=== PATIENT | male | born 1940 | race Caucasian/White ===

== ENCOUNTER 2016-12-26 08:26 | Emergency (ER) | payer MEDICARE, OTHER ==
[~2016-12-26] VITALS: Ht 172.7 cm; Wt 77.1 kg
[~2016-12-26 08:26] MED LIST: CARAFATE1 G1 PO; CARAFATE1 GM PO; CIPRO500 MG PO; COUMADIN5 M2 PO; FLAGYL500 MG PO; LISINOPRIL10 MG PO; LOPRESSOR50 MG PO; PROTONIX40 MG PO; TRAMADOL HCL50 MG PO; VITAMIN D-32000 UNI1 PO
[2016-12-26] MEDS ORDERED: ZESTRIL5 MG PO (08:48)
[2016-12-26] MEDS ORDERED: VITAMIN D400 I1 PO (08:50)
[2016-12-26 09:31] LABS: BILIRUBIN NEGATIVE (NEGATIVE); BLOOD 3+ (NEGATIVE); CLARITY SL CLOUDY (CLEAR); COLOR YELLOW (YELLOW); GLUCOSE NEGATIVE (NEGATIVE); KETONE NEGATIVE (NEGATIVE); LEUKO ESTERASE NEGATIVE (NEGATIVE); NITRITE NEGATIVE (NEGATIVE); PH 5.5 (5.0-9.0); PROTEIN TRACE (NEGATIVE); SPECIFIC GRAVITY 1.025 (1.005-1.030); UROBILINOGEN 0.2 E.U./dl (0.2-1.0)
[2016-12-26 09:38] LABS: BACTERIA TRACE; MUCOUS 2+; RBC 31-40 rbc/hpf (0-2); URINE REFLEX COMMENT YES (NO)
[2016-12-26] MEDS ORDERED: FLOMAX0.4 MG PO (10:42)
== END 2016-12-26 11:18 | disposition home or self-care (01) ==
LOC: ED 08:26
PROVIDERS: Student in an Organized Health Care Education/Training Program
DX: R33.9 Retention of urine, unspecified (principal); Z91.041 Radiographic dye allergy status; Z91.011 Allergy to milk products; Z79.899 Other long term (current) drug therapy; Z79.02 Long term (current) use of antithrombotics/antiplatelets

== ENCOUNTER 2017-06-15 14:10 | Emergency (ER) | payer OTHER, MEDICARE ==
[~2017-06-15] VITALS: Ht 172.7 cm; Wt 77.1 kg
[~2017-06-15 14:10] MED LIST changes: +FLOMAX0.4 MG PO; +VITAMIN D400 I1 PO; +ZESTRIL5 MG PO
[2017-06-15 15:34] LABS: BASO % 0.4 % (0.0-1.0); EOS # 0.2 10*3/uL (0.0-0.4); EOS % 2.3 % (1.0-4.0); HEMATOCRIT 42.6 % (42.0-52.0); HEMOGLOBIN 13.6 g/dl (14.0-18.0); LYMPH # 1.2 10*3/uL (1.3-4.4); LYMPH % 16.2 % (27.0-41.0); MEAN CORPUSCULAR HGB 29.1 pg (27.0-31.0); MEAN CORPUSCULAR HGB CONC 31.9 g/dl (33.0-37.0); MEAN PLATELET VOLUME 10.1 fl (9.6-12.3); MONO # 0.6 10*3/uL (0.1-1.0); NEUT # 5.3 10*3/uL (2.3-7.9); NEUT % 72.5 % (47.0-73.0); PLATELET COUNT AUTOMATED 273 10*3/uL (130-400); RED BLOOD COUNT 4.68 10*6/uL (4.50-5.90); RED CELL DISTRI WIDTH 14.3 % (0-14.5); WHITE BLOOD COUNT 7.2 10*3/uL (4.8-10.8)
[2017-06-15 15:43] LABS: ACT PARTIAL THROMBO TIME 38.1 SECONDS (20.8-31.5); INTERNATIONAL NORM RATIO 3.8 (2.0-3.5)
[2017-06-15 15:47] LABS: BILIRUBIN NEGATIVE (NEGATIVE); BLOOD TRACE-INTACT (NEGATIVE); CLARITY SL CLOUDY (CLEAR); COLOR YELLOW (YELLOW); GLUCOSE NEGATIVE (NEGATIVE); KETONE NEGATIVE (NEGATIVE); LEUKO ESTERASE NEGATIVE (NEGATIVE); NITRITE NEGATIVE (NEGATIVE); PH 5.5 (5.0-9.0); UROBILINOGEN 0.2 E.U./dl (0.2-1.0)
[2017-06-15 15:49] LABS: ALBUMIN 2.9 gm/dl (3.1-4.5); ALKALINE PHOSPHATASE 79 U/L (45-117); BUN 62 mg/dl (7-24); CHLORIDE 109 mmol/L (98-107); LIPASE 255 U/L (73-393); MAGNESIUM 2.5 mg/dL (1.5-2.1); POTASSIUM 4.8 mmol/L (3.5-5.1); SGOT/AST 21 IU/L (3-35); SGPT/ALT 24 U/L (12-78); SODIUM 141 mmol/L (136-145); TOTAL PROTEIN 7.1 gm/dL (6.4-8.2)
[2017-06-15 15:56] LABS: TROPONIN I < 0.015 ng/ml (<0.045)
[2017-06-15 16:04] LABS: HYALINE CAST 16-20
[2017-06-15 16:05] LABS: BACTERIA 1+; EPITHELIAL CELLS 0-2
== END 2017-06-15 20:37 | disposition other institution (70) ==
LOC: ED 14:10
PROVIDERS: Physician Assistant
DX: K92.2 Gastrointestinal hemorrhage, unspecified (principal); N13.2 Hydronephrosis with renal and ureteral calculous obstruction; N28.9 Disorder of kidney and ureter, unspecified; R79.1 Abnormal coagulation profile; Z79.899 Other long term (current) drug therapy; Z91.041 Radiographic dye allergy status; Z91.011 Allergy to milk products

== ENCOUNTER 2018-02-22 21:30 | Emergency (ER) | payer MEDICARE, OTHER ==
[~2018-02-22] VITALS: Ht 172.7 cm; Wt 77.1 kg
[2018-02-22 21:47] LABS: BASO # 0.1 10*3/uL (0.0-0.1); BASO % 0.7 % (0.0-1.0); EOS # 0.5 10*3/uL (0.0-0.4); EOS % 5.4 % (1.0-4.0); HEMATOCRIT 44.4 % (42.0-52.0); HEMOGLOBIN 14.1 g/dl (14.0-18.0); LYMPH # 3.9 10*3/uL (1.3-4.4); LYMPH % 43.3 % (27.0-41.0); MEAN CELL VOLUME 93.5 fl (80.0-94.0); MEAN CORPUSCULAR HGB 29.7 pg (27.0-31.0); MEAN CORPUSCULAR HGB CONC 31.8 g/dl (33.0-37.0); MEAN PLATELET VOLUME 10.4 fl (9.6-12.3); MONO # 0.8 10*3/uL (0.1-1.0); NEUT # 3.7 10*3/uL (2.3-7.9); NEUT % 41.3 % (47.0-73.0); PLATELET COUNT AUTOMATED 222 10*3/uL (130-400); RED BLOOD COUNT 4.75 10*6/uL (4.50-5.90); RED CELL DISTRI WIDTH 14.2 % (0-14.5)
[2018-02-22 21:57] LABS: ACT PARTIAL THROMBO TIME 37.5 SECONDS (20.8-31.5); INTERNATIONAL NORM RATIO 2.8 (2.0-3.5)
[2018-02-22 22:04] LABS: ALBUMIN 3.8 gm/dl (3.1-4.5); ALKALINE PHOSPHATASE 106 U/L (45-117); BUN 47 mg/dl (7-24); CHLORIDE 108 mmol/L (98-107); POTASSIUM 4.1 mmol/L (3.5-5.1); SGOT/AST 16 IU/L (3-35); SGPT/ALT 24 U/L (12-78); SODIUM 143 mmol/L (136-145); TOTAL PROTEIN 7.8 gm/dL (6.4-8.2)
[2018-02-22 22:05] LABS: TROPONIN I < 0.015 ng/ml (<0.045)
== END 2018-02-22 22:43 | disposition short-term general hospital (02) ==
LOC: ED 21:30
PROVIDERS: Student in an Organized Health Care Education/Training Program
DX: I21.3 ST elevation (STEMI) myocardial infarction of unspecified site (principal); Z91.041 Radiographic dye allergy status; Z79.899 Other long term (current) drug therapy